=== PATIENT | female | born 1965 | race Caucasian/White ===

== ENCOUNTER 2025-05-30 15:53 | Emergency (ER) | payer OTHER, SELFPAY ==
[2025-05-30 16:05] VITALS: BP 182/75; PULSE 75; RESP 16; TEMP 37.1; O2SAT 97
--- NOTE | 2025-05-30 16:08 | ED_ITS ---
HPI - Skin/Abscess/Foreign Bdy General Chief complaint: Skin/Abscess/Foreign Body Stated complaint: Rash Time Seen by Provider: 05/30/25 16:09 Source: patient and RN notes reviewed Mode of arrival: ambulatory Limitations: no limitations History of Present Illness HPI narrative: 59-year-old female presents with concern of for red area on her neck. Reports has been there for 2-3 weeks. Reports she has tried several [id number] remedies lungs are twice without relief. A denies pain, reports slightly itchy. MD complaint: rash Related Data Allergies Allergy/AdvReac Type Severity Reaction Status Date / Time No Known Allergies Allergy Verified 05/30/25 16:08 Review of Systems Review of Systems: CONSTITUTIONAL: Denies malaise, chills, sweats, or fever. SKIN: Reports rash on her right neck All systems reviewed & are unremarkable except as noted in HPI and below PMFSH Comments At time of signature, agree with nursing past medical, surgical, social and family history. There is no relevant family history pertinent to the presenting complaint Exam Narrative: GENERAL: Well-appearing, well-nourished, and in no acute distress. HEAD: Normocephalic, atraumatic. EYES: PERRLA, conjunctivae clear, and EOMI. ENT: Mucous membranes moist. NECK: Supple. No lymphadenopathy CHEST: Clear to auscultation. No respiratory distress. HEART: Regular rate and rhythm. SKIN: Warm, dry. Annular erythematous scaly patch noted to the neck approximately 2 cm in diameter NEURO: Alert and oriented x3. PSYCH: Normal mood and affect Course Course Emergency Course: Patient is aware of diagnosis, understands and agrees to treatment plan. Anticipatory guidance given. Patient agrees to follow-up as directed and is aware of reasons to seek care at the emergency department. Portions of this record may have been created with voice recognition software Level of Care: Express Care Visit Vital Signs Vital signs: Vital Signs Temperature 98.7 F 05/30/25 16:05 Pulse Rate 75 05/30/25 16:05 Respiratory Rate 16 05/30/25 16:05 Blood Pressure 182/75 H 05/30/25 16:05 Pulse Oximetry 97 05/30/25 16:05 Oxygen Delivery Room Air 05/30/25 16:05 Temperature 98.7 F 05/30/25 16:05 Pulse Rate 75 05/30/25 16:05 Respiratory Rate 16 05/30/25 16:05 Blood Pressure 182/75 H 05/30/25 16:05 Pulse Oximetry 97 05/30/25 16:05 Oxygen Delivery Room Air 05/30/25 16:05 Reviewed. MDM - Skin/Abscess/Foreign Bdy MDM Narrative Medical decision making narrative: Does not appear at this time to be erythema multiforme, bullous, SJS, TEN; no evidence at this time to suggest RMSF, endocarditis or Lyme disease; patient looks well, nontoxic and is tolerating oral intake; no neurologic signs or symptoms; no headache, photophobia or neck pain; afebrile; appropriate for initial outpatient treatment; discussed the importance of follow-up, patient agrees; question, viral exanthema, contact dermatitis, allergic dermatitis, eczema, urticaria, tinea. No soft palate or uvula edema, no tongue, lip edema or other mucosal involvement, no respiratory compromise, no stridor, no wheezing, no wheezing, no history of syncope, no hypotension, no nausea, vomiting, or diarrhea. Instructed patient to go to nearest ER immediately for any worsening symptoms including but not limited to: fever, spreading rash, pain, sore throat, headache, dizziness, chest pain, trouble breathing, or any symptoms concerning to the patient. Critical Care Time Critical Care Time Critical Care Time: No Discharge Plan Discharge Clinical Impression: Tinea corporis Patient Disposition: Home Condition: Stable Instructions: Tinea Corporis (ED) Additional Instructions: Wash the area with gentle soap and water only. Use skin cream as prescribed Avoid scratching when possible to prevent worsening of the condition and disruption of the skin that could lead to bacterial infection To relieve itching, place a cool washcloth or some ice over the area that itches, rather than scratching Follow up with primary care provider or seek ER if you have trouble breathing, become hoarse, or start wheezing, develop belly cramps, vomiting or feel dizzy. Patient Language: Spanish Prescriptions: New clotrimazole-betamethasone 1-0.05 % cream 1 applic TOPICAL BID 28 Days Qty: 45 1RF Follow-up/Referrals: PHYSICIAN,INDUSTRY SEGMENT SPECIALIST [Primary Care Provider, Internal Medicine] Time of Disposition: 16:19
== END 2025-05-30 16:25 | disposition home or self-care (01) ==
PROVIDERS: Emergency Provider Nurse Practitioner
DX: B35.4 Tinea corporis (principal)
CPT/HCPCS: 99203; G0463